=== PATIENT | female | born 1980 | race Two or more races ===

== ENCOUNTER 2020-04-25 02:22 | Inpatient (IN) | payer MEDICARE ==
[~2020-04-25] VITALS: Ht 157.5 cm; Wt 81.6 kg
[2020-04-25] MEDS ORDERED: LACTATED RINGERS 1,000 ML IV SCH ×2 (05:29→14:45)
[2020-04-25] MEDS ORDERED: DEXT 5%/LR + PITOCIN 20UNITS/L 1,000 ML IV SCH ×2 (05:29→13:29)
[2020-04-25] MEDS ORDERED: BUTORPHANOL TARTRATE 2 MG/ML VIAL IV PRN (05:30)
[2020-04-25] MEDS ORDERED: METHYLERGONOVINE MALEATE 0.2 MG/ML IM PRN (05:30)
[2020-04-25] MEDS ORDERED: LIDOCAINE HCL 1% 20ML VIAL (Pyxis) INJ INFIL SCH (05:30)
[2020-04-25] MEDS ORDERED: NALOXONE HCL 0.4 MG/ML 1ML VIAL IM PRN (05:30)
[2020-04-25] MEDS ORDERED: CARBOPROST TROMETHAMINE 250 MCG/ML AMPUL IM PRN (05:30)
[2020-04-25 05:48] LABS: BASOPHILS % 0.2 % (0.0-2.0); EOSINOPHILS % 0.6 % (0.0-5.0); HEMOGLOBIN. 11.8 g/dL (12.0-16.0); LYMPHOCYTES % 14.6 % (20.0-50.0); MEAN CORPUSCULAR VOLUME 85.1 fL (81.0-99.0); MEAN PLATELET VOLUME 11.7 fl (7.4-10.4); MONOCYTES % 4.4 % (2.0-8.0); NEUTROPHILS % 80.2 % (40.0-76.0); PLATELET 114 x1000/uL (130-400); RED BLOOD CELL COUNT 4.24 mill/uL (4.2-5.4)
[2020-04-25 05:48] LABS: CLARITY URINE CLEAR (CLEAR); COLOR URINE YELLOW (YELLOW); KETONES URINE NEGATIVE (NEGATIVE); LEUKOCYTE ESTERASE URINE 2+ (NEGATIVE); NITRITE URINE NEGATIVE (NEGATIVE); OCCULT BLOOD URINE 3+ (NEGATIVE); PH URINE 7.5 (4.5-8.0); PROTEIN URINE TRACE (NEGATIVE); SPECIFIC GRAVITY URINE 1.015 (1.005-1.030); UROBILINOGEN URINE 0.2 E.U./dL (0.2-1.0)
[2020-04-25 05:51] LABS: CHLORIDE 108 mEq/L (98-107)
[2020-04-25] MEDS ORDERED: PENICILLIN G POTASSIUM 5 MMU in DEXT 5% WATER 100 ML IV SCH (06:00)
[2020-04-25 06:01] LABS: *AMPHETAMINES SCREEN URINE NEGATIVE (NEGATIVE); *BARBITURATES SCREEN URINE NEGATIVE (NEGATIVE); *BENZODIAZEPINES SCREEN URINE NEGATIVE (NEGATIVE); *COCAINE SCREEN URINE NEGATIVE (NEGATIVE); METHADONE URINE SCREEN NEGATIVE (NEGATIVE); OPIATES URINE SCREEN NEGATIVE (NEGATIVE)
[2020-04-25 06:02] LABS: CANNABINOID URINE SCREEN NEGATIVE (NEGATIVE); PHENCYCLIDINE URINE SCREEN NEGATIVE (NEGATIVE)
[2020-04-25 06:18] LABS: HEPATITIS B SURFACE ANTIGEN NEGATIVE
[2020-04-25 06:29] LABS: INR 0.9; PARTIAL THROMBOPLASTIN TIME 29.6 sec (23.4-31.0); PROTHROMBIN TIME 9.9 sec (9.6-11.0)
[2020-04-25] MEDS ORDERED: PENICILLIN G POTASSIUM 2.5 MMU in DEXTROSE 5% WATER 50 ML IV SCH (10:00)
[2020-04-25] MEDS ORDERED: DIPHENHYDRAMINE 50MG/ML VIAL IV PRN (11:45)
[2020-04-25] MEDS ORDERED: BUTORPHANOL TARTRATE 2 MG/ML VIAL IM PRN (11:45)
[2020-04-25] MEDS ORDERED: ONDANSETRON HCL 4MG/2ML INJ IV PRN ×2 (11:45→13:30)
[2020-04-25] MEDS ORDERED: LABETALOL 5MG/ML SYR 20 MG/4 ML SYRINGE IV PRN (11:45)
[2020-04-25] MEDS ORDERED: MEPERIDINE HCL/PF 25MG/ML CPJ IV PRN (11:45)
[2020-04-25] MEDS ORDERED: HYDROMORPHONE HCL/PF 2MG/ML CPJ IV PRN (11:45)
[2020-04-25] MEDS ORDERED: FENTANYL CITRATE/PF 50MCG/ML 2ML VIAL ONE ×2 (12:19→13:20)
[2020-04-25] MEDS ORDERED: MORPHINE SULFATE/PF 1MG/ML 10ML AMP ONE (12:20)
[2020-04-25] MEDS ORDERED: OXYTOCIN 10 UNITS/ML 1ML ONE ×2 (12:42→13:00)
[2020-04-25] MEDS ORDERED: EPHEDRINE SULFATE 50MG/ML VIAL ONE (13:00)
[2020-04-25] MEDS ORDERED: CEFAZOLIN SODIUM 1000MG/VIAL ONE (13:00)
[2020-04-25] MEDS ORDERED: SODIUM CHLORIDE 0.9% 10ML VIAL ONE (13:00)
[2020-04-25] MEDS ORDERED: HYDROCODONE/ACETAMINOPHEN 5/325MG TABLET PO PRN (13:30)
[2020-04-25] MEDS ORDERED: IBUPROFEN 400MG TABLET PO PRN (13:30)
[2020-04-25] MEDS ORDERED: LANOLIN OINT 7GM TUBE TOP PRN (13:30)
[2020-04-25] MEDS ORDERED: BISACODYL 10MG SUPP PR PRN (13:30)
[2020-04-25] MEDS ORDERED: DIPHENHYDRAMINE 25MG CAPSULE PO PRN (13:30)
[2020-04-25 16:03] LABS: HEMATOCRIT 35.4 % (36.0-48.0); HEMOGLOBIN 11.4 g/dL (12.0-16.0); MEAN CORPUSCULAR HEMOGLOBIN 27.7 pg (28.0-32.0); MEAN CORPUSCULAR VOLUME 86.2 fL (81.0-99.0); PLATELET 87 x1000/uL (130-400); RED BLOOD CELL COUNT 4.11 mill/uL (4.2-5.4); RED CELL DISTRIBUTION WIDTH 15.2 % (11.6-14.6)
[2020-04-25 16:30] VITALS: BP 107/62
[2020-04-25 17:00] VITALS: BP 106/65
[2020-04-25] MEDS: KETOROLAC 30MG/ML VIAL IV PRN (19:12)
[2020-04-25 20:00] VITALS: BP 115/72
[2020-04-25] MEDS: DOCUSATE SODIUM 100MG CAPSULE PO SCH (21:00)
[2020-04-25] MEDS: SIMETHICONE 80MG TABLET CHEW PO SCH (21:00)
[2020-04-26 00:45] VITALS: BP 98/59
[2020-04-26] MEDS: KETOROLAC 30MG/ML VIAL IV PRN (04:39)
[2020-04-26 05:00] VITALS: BP 103/66
[2020-04-26 07:26] LABS: BASOPHILS % 0.2 % (0.0-2.0); EOSINOPHILS % 0.2 % (0.0-5.0); HEMATOCRIT. 31.8 % (36.0-48.0); HEMOGLOBIN. 10.5 g/dL (12.0-16.0); LYMPHOCYTES % 9.6 % (20.0-50.0); MEAN CORPUSCULAR HEMOGLOBIN 28.3 pg (28.0-32.0); MEAN CORPUSCULAR VOLUME 85.7 fL (81.0-99.0); MEAN PLATELET VOLUME 10.9 fl (7.4-10.4); MONOCYTES % 5.5 % (2.0-8.0); NEUTROPHILS % 84.5 % (40.0-76.0); PLATELET 107 x1000/uL (130-400); RED BLOOD CELL COUNT 3.71 mill/uL (4.2-5.4); RED CELL DISTRIBUTION WIDTH 15.3 % (11.6-14.6)
[2020-04-26 08:00] VITALS: BP 103/61
[2020-04-26] MEDS: SIMETHICONE 80MG TABLET CHEW PO SCH ×4 (08:00→22:00)
[2020-04-26] MEDS: PRENATAL VIT/FE FUMARATE/FA TABLET PO SCH (09:00)
[2020-04-26 12:00] VITALS: BP 105/70
[2020-04-26] MEDS: FERROUS SULFATE 325MG TABLET PO SCH ×3 (12:30→17:50)
[2020-04-26] MEDS: IBUPROFEN 800MG TABLET PO PRN ×2 (15:31→17:51)
[2020-04-26 16:05] VITALS: BP 104/66
[2020-04-26 20:00] VITALS: BP 99/68
[2020-04-26] MEDS: DOCUSATE SODIUM 100MG CAPSULE PO SCH (22:00)
[2020-04-27] VITALS: BP 100/60
[2020-04-27] MEDS: IBUPROFEN 800MG TABLET PO PRN ×3 (02:12→16:42)
[2020-04-27 05:33] VITALS: BP 121/52
[2020-04-27] MEDS: SIMETHICONE 80MG TABLET CHEW PO SCH ×3 (08:00→16:43)
[2020-04-27] MEDS: PRENATAL VIT/FE FUMARATE/FA TABLET PO SCH (09:21)
[2020-04-27] MEDS: FERROUS SULFATE 325MG TABLET PO SCH ×3 (09:21→16:43)
[2020-04-27] MEDS ORDERED: IBUP-2030 PO (14:53)
== END 2020-04-27 16:30 | disposition home or self-care (01) | DRG 540 ==
LOC: 8 EST LDRP 02:22 → OBSVTOIN 02:22 → 8EST 16:54
PROVIDERS: ADMIT Obstetrics & Gynecology; ATTEND Obstetrics & Gynecology
PROC: 10D00Z1 Extraction of Products of Conception, Low, Open Approach (ICD-10-PCS; principal; 2020-04-25)
DX: O34.211 Maternal care for low transverse scar from previous cesarean delivery (principal); D69.6 Thrombocytopenia, unspecified; O76 Abnormality in fetal heart rate and rhythm complicating labor and delivery; O99.12 Other diseases of the blood and blood-forming organs and certain disorders involving the immune mechanism complicating childbirth; O99.89 Other specified diseases and conditions complicating pregnancy, childbirth and the puerperium; O42.92 Full-term premature rupture of membranes, unspecified as to length of time between rupture and onset of labor; O99.824 Streptococcus B carrier state complicating childbirth; O99.03 Anemia complicating the puerperium; Z37.0 Single live birth; Z3A.39 39 weeks gestation of pregnancy
CPT/HCPCS: 36415; 80053; 80305; 81003; 84550; 85025; 85027; 85384; 86592; 86703; 86762; 86850; 86900; 86920; 87340; 88307; J0690; J1885; J2274; J2405; J2540; J2590; J3010; J3490; J7060; J7120